=== PATIENT | male | born 1950 | race Caucasian/White ===

== ENCOUNTER 2016-10-11 12:42 | Emergency (ER) | payer MEDICARE ==
[2016-10-11 13:21] LABS: BASOPHILS 0.2 % (0.0-2.0); EOSINOPHILS 0.5 % (0-7); HEMATOCRIT 35.2 % (42.0-54.0); HEMOGLOBIN 11.2 g/dL (13.5-17.5); IMMATURE GRANULOCYTES 0.6 % (0-5); LYMPHOCYTES 80.4 % (15-50); MCH 27.9 pg (26.0-34.0); MCHC 31.8 g/dL (31.0-37.0); MCV 87.6 fL (80.0-100.0); MEAN PLATELET VOLUME 9.5 fL (7.4-10.4); MONOCYTES 0.2 % (2-11); NEUTROPHILS 18.1 % (40-80); RBC 4.02 10x6/uL (4.20-6.10); RDW 16.2 % (11.5-14.5); WBC 11.6 10x3/uL (4.8-10.8)
[2016-10-11 13:33] LABS: PLATELET COUNT 297 10x3/uL (130-400)
[2016-10-11 13:39] LABS: ALBUMIN 3.9 g/dL (3.4-5.0); ALKALINE PHOSPHATASE 50 U/L (46-116); ALT (SGPT) 22 U/L (10-68); BILIRUBIN - TOTAL 0.33 mg/dL (0.2-1.3); CALCIUM 9.4 mg/dL (8.5-10.1); CHLORIDE - SERUM 101 mmol/L (98-107); CREATININE - SERUM 0.8 mg/dL (0.6-1.3); POTASSIUM - SERUM 4.5 mmol/L (3.5-5.1); PROTEIN - SERUM 7.2 g/dL (6.4-8.2); SODIUM 139 mmol/L (136-145); UREA NITROGEN 23 mg/dL (7-18); eGFR NON AFRICAN AMERICAN > 90 mL/min (90-120)
[2016-10-11 13:48] LABS: AMYLASE - SERUM 35 U/L (25-115); CREATINE KINASE 29 UL (21-232); LIPASE 146 U/L (73-393); PRO BNP 234 pg/mL (0-125); THYROID STIMULATING HORMONE 3.02 uIU/mL (0.36-3.74)
[2016-10-11 13:53] LABS: CALC OSMOLALITY 279 mosm/kg (275-300); GLUCOSE 58 mg/dL (74-106); TROPONIN-I < 0.017 ng/mL (0.000-0.060)
== END 2016-10-11 15:18 | disposition home or self-care (01) ==
LOC: D.ER 12:42
PROVIDERS: Family Medicine
DX: R55 Syncope and collapse (principal); F41.9 Anxiety disorder, unspecified; F31.9 Bipolar disorder, unspecified; E11.9 Type 2 diabetes mellitus without complications; K21.9 Gastro-esophageal reflux disease without esophagitis; I10 Essential (primary) hypertension; E78.5 Hyperlipidemia, unspecified; E03.9 Hypothyroidism, unspecified; C61 Malignant neoplasm of prostate; F20.9 Schizophrenia, unspecified; R00.0 Tachycardia, unspecified